=== PATIENT | male | born 1980 | race Caucasian/White ===

== ENCOUNTER → 2024-04-27 | Outpatient (CLI) | payer BC ==
[2024-04-27 16:02] VITALS: BP 106/76; PULSE 92; RESP 18; TEMP 98.6
--- NOTE | 2024-04-27 18:41 | P.SLEEP ---
History of Present Illness DATE: 04/27/2024 CONSULTATION/NEW PATIENT EVALUATION HISTORY OF PRESENT ILLNESS/SLEEP-WAKE EVALUATION: 44-year-old gentleman had b een evaluated in the sleep center for obstructive sleep apnea hypopnea syndrome. In November 2023 patient had home sleep apnea test which was done in another institution and showed severe obstructive sleep apnea with apnea hypopnea index 78 and oxygen desaturation to 78%. SLEEP SCHEDULE: Usually sleep schedule from 2 AM until 8:45 AM on weekdays and from 2 AM until 11 AM on weekend. FALLING ASLEEP: Usually no problems with falling asleep. DURING SLEEP: Patient has loud snoring and witnessed episodes of stop breathing during the sleep, patient wakes up from sleep up to 2 times. No history of hypnogogical hallucinations, sleep paralysis, or cataplexy. DURING THE DAY/WAKE STATE: []. Keo sleepiness scale is 6. Patient takes 1 nap during the day. PAST MEDICAL HISTORY: Hypertension, erectile dysfunction. PAST SURGICAL HISTORY: Tonsillectomy. MEDICATIONS: Please see below. SOCIAL HISTORY: Please see below. FAMILY HISTORY: Please see below. REVIEW OF SYSTEMS: Loud snoring, awakenings from sleep. No fevers. No double vision. No recent chest pain. No shortness of breath. No abdominal pain. No bleeding episodes. No blood in urine. No seizure episodes. PHYSICAL EXAMINATION: GENERAL: A pleasant patient without any distress. VITAL SIGNS: Please see below, weight 274 pounds, BMI 44.2. HEENT: PERRLA, EOMI. Evaluation of oropharynx showed tongue protrudes midline, low position of soft palate Mallampati 3. NECK: Supple. No JVD. Thyroid is not palpable. 17.5 inches in circumference. LUNGS: Clear to percussion and to auscultation. Good air exchange. No wheezing or rhonchi. HEART: S1, S2 regular. No murmurs, gallops or rubs. ABDOMEN: Soft and nontender. Bowel sounds are present. No organomegaly appreciated. EXTREMITIES: No clubbing or cyanosis. MILITARY PILOT: Awake, alert, and oriented x3. Cranial nerves 2 to 7 intact. There is no fasciculation or atrophy noted. No focal deficits observed. ASSESSMENT: 1. Loud snoring, awakenings from sleep, small oropharyngeal airspace, severe sleep apnea by results of sleep study in November 2023 with apnea hypopnea index 78 and oxygen desaturation to 78%. 2. Obesity, BMI 44.2. 3. Hypertension. 4. History of erectile dysfunction. 5 status post tonsillectomy. PLAN: 1. CPAP titration for correction of respiratory abnormalities during sleep. 2. Following plan after reading CPAP titration. 3. Preferable position during sleep on the side. 4. No driving if patient feels any sleepiness. Patient is aware of civil and criminal liability for unsafe driving. 5. Sleep hygiene with regular sleep time for at least 7.5-8 hours. 6. Watching and losing weight. Thank you very much for referring this patient for consultation. Sincerely, Gerardo Freitas MD, PhD, FAASM. Diplomat of [employer], Sleep Medicine Board by [employer] [facility] Prost[facility] [place] cc: Teri Robertson III, MD Past Medical History Past Medical History: Asthma, Hypertension Additional Past Medical History / Comment(s): ED, Seasonal Allergies History of Any Multi-Drug Resistant Organisms: None Reported Past Surgical History: No Surgical Hx Reported Past Anesthesia/Blood Transfusion Reactions: No Reported Reaction Past Psychological History: No Psychological Hx Reported Smoking Status: Former smoker Past Alcohol Use History: Rare Past Drug Use History: None Reported - Past Family History Mother Additional Family Medical History / Comment(s): snoring Father Family Medical History: COPD Additional Family Medical History / Comment(s): Former Smoker 40 years Medications and Allergies Home Medications Medication Instructions Recorded Confirmed Type Olmesartan Medoxomil 20 mg PO DAILY 04/27/24 04/27/24 History tadalafiL 11.2 mg PO DIRECTED PRN 04/27/24 04/27/24 History Physical Exam Vitals: Vital Signs Temp Pulse Resp BP Pulse Ox 04/27/24 16:01 98.6 F 92 18 106/76 95 Intake and Output 04/27/24 04/27/24 04/27/24 06:59 14:59 22:59 Other: Weight 124.284 kg Sleep Note - Sleep Data ESS Total: 6 - Sleep Note Sleep Note: Temperature: 98.6 F Pulse Rate: 92 Respiratory Rate: 18 Blood Pressure: 106/76 SpO2: 95 Height: 5 ft 6 in Weight: 124.284 kg BMI: Neck Circumference: 17.5
== END ==
LOC: 3 N SLEEP 15:01
PROVIDERS: ATTEND Internal Medicine
DX: G47.33 Obstructive sleep apnea (adult) (pediatric) (principal); R06.83 Snoring; E66.9 Obesity, unspecified; Z68.41 Body mass index [BMI] 40.0-44.9, adult; I10 Essential (primary) hypertension; Z87.438 Personal history of other diseases of male genital organs; Z90.89 Acquired absence of other organs
CPT/HCPCS: 99211

== ENCOUNTER 2024-05-25 19:48 | Outpatient (CLI) | payer BC ==
--- NOTE | 2024-05-31 17:45 | P.PCN ---
Description of Procedure: CLINICAL: Titration with positive air pressure has been done for correction of respiratory abnormalities during sleep. DESCRIPTION OF PROCEDURE: The standard montage for clinical polysomnography included the electroencephalogram, the electrocardiogram, the mentalis surface electromyography and Lead II cardiography. The respiratory battery consisted of measurements of nasal /buccal air flow, pressure transducer measurements from the nose, thoracic and /or abdominal effort and intercostal surface electromyography. Video monitoring has been done to check for any parasomnia events. Nocturnal oxyhemoglobin saturations were obtained by finger oximetry. Step-kaplan titration with positive airway pressure was utilized to control respiratory events. Raw data of sleep recording has been reviewed and is adequate. RESULTS: Sleep efficiency was normal 92.9%. Latency to sleep onset was normal 16.5 minutes.]. Sleep architecture showed stage N1 was extremely short 1.1%, Delta sleep was increased to 37.1%, REM sleep was slightly increased to 31.4%. Heart rate was minimum 62 BPM, maximum 72 BPM, average 66 BPM. EMG showed 0 periodic limb movements per hour. PAP titration have been done with CPAP up to the pressure 10 cm H2O. Patient had problems with CPAP, switched to BPAP. BPAP titrated up to [] cm H2O. The best results were at the pressure 8 cm H2O. Apnea hypopnea index reduced to 2.0. Patient was at that pressure in non-REM sleep and in REM sleep. IMPRESSION: 1. Obstructive sleep apnea hypopnea syndrome on controle with PAP treatment. 2. No significant periodic limb movements have been documented. Please see other impressions from consultation. PLAN: 1. The patient will have treatment with positive air pressure equipment with the level of pressure AutoPAP 5-12 cm H2O and should use it every night for the whole night. 2. Watching and losing weight. 3. Sleep hygiene with regular time in bed for at least 8 hours. 4. No driving if feeling any sleepiness. 5. I will see the patient for follow up visit to explain the results of the test, recommendations, check compliance with treatment and make any necessary adjustment related to mask fitting, pressure and humidification. Thank you very much for allowing me to participate in the management of your patient. Sincerely, Gerardo Freitas MD, PhD, FAASM Diplomat of [place] [employer] Sleep Medicine Board of [place] [employer] Maintenance Leader [facility] [place] cc: Teri Robertson MD
== END 2024-05-26 05:30 | disposition home or self-care (01) ==
LOC: 3 N SLEEP 19:48
PROVIDERS: ATTEND Internal Medicine
DX: G47.33 Obstructive sleep apnea (adult) (pediatric) (principal); Z99.89 Dependence on other enabling machines and devices
CPT/HCPCS: 95811

== ENCOUNTER → 2024-08-16 | Outpatient (CLI) | payer BC ==
[2024-08-16 11:10] VITALS: BP 149/94; PULSE 76; RESP 16; TEMP 98
--- NOTE | 2024-08-16 11:53 | P.PROGSL ---
Subjective DATE: 08/16/2024 FOLLOW UP VISIT. Patient with obstructive sleep apnea hypopnea syndrome return to sleep center for follow-up visit. Recently patient had sleep study which documented obstructive sleep apnea hypopnea syndrome. Patient was initiated on PAP therapy and today is first visit after treatment was started. Patient was able to use PAP equipment every night for the whole night. The patient does not have significant problems with the mask, PAP pressure and humidification. Panacea sleepiness scale is 2, which is normal. I checked information from PAP unit. PAP unit pressure 5-20, average 9.6 cm H2O. Usage is 97% for more then 4 hours, average 7.5 hours per night. Leak is significantly increased to 65.5 l/m. Apnea Hypopnea Index is 1.4, which is normal. MEDICATIONS: Please see below During physical exam: GENERAL: A pleasant patient without any distress. VITAL SIGNS: Please see below, weight 278 pounds. HEENT: PERRLA, EOMI.low position of soft palate, Mallapati 3 . NECK: Supple. No JVD. LUNGS: Clear to percussion and to auscultation. Good air exchange. No wheezing or rhonchi. HEART: S1, S2 regular. ABDOMEN: Soft and nontender.[] EXTREMITIES: No clubbing or cyanosis. PLAYERS ASSISTANT: Awake, alert, and oriented x3. No focal deficit. Impressions: 1. Obstructive sleep apnea-hypopnea syndrome. Patient demonstrated great compliance with treatment, benefiting from treatment. 2. Obesity. 3. Hypertension. 4. Status post tonsillectomy. Plan: 1. Continue using PAP equipment every night for the whole night. 2. To change air filter at least 1-2 times per month. 3. PAP unit should stay lower then position of the head. 4. Advised patient to remove all remaining water from humidifier canister daily and make it dry after each usage. Refill canister with fresh distilled water before each usage. 5. Sleep hygiene with regular time in bed for at least 8 hours. 6. Precautions related to driving. No driving if feel any sleepiness. 7. I will maintain prescription for PAP supplies including mask, tube, filters. 8. Follow up visit in 6 months or earlier if patient has any problems. 9. Watching and losing weight. Thank you very much for allowing me to participate in the management of your patient. Gerardo Freitas MD, PhD, FAASM. Diplomat of [place] [employer], Sleep Medicine Board by [place] [employer] [facility] [place] Objective - Vital Signs Vital Signs: Vital Signs Temp 98 F 08/16/24 11:09 Pulse 76 08/16/24 11:09 Resp 16 08/16/24 11:09 BP 149/94 08/16/24 11:09 Pulse Ox 95 08/16/24 11:09 FiO2 Intake & Output 08/15/24 08/16/24 08/16/24 18:59 06:59 18:59 Weight 126.099 kg Home Medications: Home Medications Medication Instructions Recorded Confirmed Type Olmesartan Medoxomil 20 mg PO DAILY 04/27/24 04/27/24 History tadalafiL 11.2 mg PO DIRECTED PRN 04/27/24 04/27/24 History
== END ==
LOC: 3 N SLEEP 10:38
PROVIDERS: ATTEND Internal Medicine
DX: G47.33 Obstructive sleep apnea (adult) (pediatric) (principal); E66.9 Obesity, unspecified; I10 Essential (primary) hypertension; Z90.89 Acquired absence of other organs; Z99.89 Dependence on other enabling machines and devices
CPT/HCPCS: 99212